=== PATIENT | male | born 1935 | race Caucasian/White ===

== ENCOUNTER 2017-12-06 23:55 | Inpatient (IN) | payer OTHER ==
[~2017-12-06] VITALS: Ht 180.3 cm; Wt 74.8 kg
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
--- NOTE | ~2017-12-06 | EC ---
PATIENT:BRANDEE PEREZ DATE OF SERVICE: 12/07/17 SEX: M MEDICAL RECORD: [id number] DATE OF : [birth year] LOCATION:[facility] [id number] AGE OF PATIENT: 81 ADMISSION DATE: 12/07/17 REFERRING PHYSICIAN: INTERPRETING PHYSICIAN: CASSIDY EDWARDS MD ECHOCARDIOGRAM REPORT ECHO CHARGES 4 ECHO COMPLETE Date: 12/08/17 CLINICAL DIAGNOSIS: CAD/MURMUR ECHOCARDIOGRAPHIC MEASUREMENTS (adult normal given) AC root (d.<3.7cm) 3.3 cm LV Septum d (<1.2 cm> 1.5 cm Valve Excursion 0.7 cm LV Septum (systole) 2.1 cm Left Atria (s.<4.0cm> 4.7 cm LVPW d(<1.2cm) 1.3 cm RV (d.<2.3cm) 2.4 cm LVPW (sytole) 2.0 cm LV diastole(<5.6CM) 3.9 cm MV E-F(>70mm/sec) cm LV systole 1.7 cm LVOT Diameter 2.2 cm MV exc.(>10mm) cm Est.ejection fraction (50-75%) % DOPPLER: LVIT cm/sec A 84.0 cm/sec E 92.0 cm/sec LA cm/sec RVSP 41.2 mmHg LVOT 138 cm/sec AOP1/2T m/s Asc. Ao 260 cm/sec RVOT 84.0 cm/sec RA cm/sec PA 106 cm/sec AV Gradient Peak 27.1 mmHg AV Mean 15.2 mmHg AV Area 2.1 cm MV Gradient Peak 6.0 mmHg MV Mean 2.8 mmHg MV Area cm COMMENTS: Foxing Closer: Alesia CABAOE Bow Maker: 1 Dr. Edwards TAPE# PACS Pericardial Effusion N DATE OF SERVICE: 12/08/2017 PROCEDURE: Echocardiogram. FINDINGS: 1. Left ventricular chamber size is within normal limits. Left ventricular systolic function is normal. Overall ejection fraction estimated at 60%. 2. Left atrium, right atrium, and right ventricle chamber sizes are mildly dilated. Left atrium measures 4.7 cm. 3. 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 The remaining valvular structures have normal structure and motion. 4. Doppler interrogation elsewise reveals mild mitral regurgitation, mild tricuspid regurgitation, no other valvular insufficiency or stenosis. 5. No evidence of pericardial effusion or left ventricular thrombus. TRANSINT:[id number] Voice Confirmation ID: [id number] DOCUMENT ID: [id number] CASSIDY EDWARDS MD at 1913 CC: [id number] DICTATION DATE: 12/08/17 1054 HR INTERNSHIP: 12/08/17 1111 DIS IN 12/15/17 [facility] [address] [place] [address]
--- NOTE | ~2017-12-06 | MORECARE ---
CASE MANAGEMENT DISCHARGE SUMMARY PATIENT: BRANDEE PEREZ UNIT: [id number] ADM DATE: 12/07/17 AGE: 81 : 35 SEX: M ROOM/BED: D.2220 AUTHOR: JET SANCHEZ PHYSICIAN: REFERRING PHYSICIAN: MAKEDA DELUCA MD DATE OF SERVICE: 12/11/17 Discharge Plan Patient Name: BRANDEE PEREZ Facility: [facility]:[place] : 1935 Planned Disposition: Nursing Home Facility Anticipated Discharge Date: Discharge Date: Expected LOS: Initial Reviewer: [email or web address] Initial Review Date: 12/07/2017 Generated: 12/11/17 4:07 pm Patient Name: BRANDEE PEREZ Page [id number] at 1507 All edits/amendments must be made on the electronic document DICTATION DATE: 12/11/171506 SEASONAL TAX PREPARER: ALBERT 12/11/17 1507 RPT#: [id number] DC DATE: STATUS: ADM IN [facility] [address] [place] [address] END OF REPORT
[2017-12-07] VITALS (7 sets, daily range): BP systolic 102–145; BP diastolic 55–71; BMI 23.0
[2017-12-07] MEDS ORDERED: FLOMAX0.4 MG PO (00:04)
[2017-12-07] MEDS ORDERED: BAYER CHEWABLE81 MG PO (00:04)
[2017-12-07] MEDS ORDERED: LIPITOR10 MG (00:04)
[2017-12-07 00:27] LABS: APPEARANCE CLOUDY (CLEAR); BILIRUBIN NEGATIVE (NEGATIVE); COLOR YELLOW (YELLOW); GLUCOSE NEGATIVE (NEGATIVE); KETONE NEGATIVE (NEGATIVE); NITRITE NEGATIVE (NEGATIVE); PROTEIN 2+ mg/dL (NEGATIVE); SPECIFIC GRAVITY 1.025 (1.005-1.020); UROBILINOGEN NORMAL (NORMAL)
[2017-12-07 00:29] LABS: BACTERIA MANY /hpf (NONE SEEN); EPITHELIAL CELLS 0-5 /hpf (0-5); RED CELLS - URINE 0-5 /hpf (0-5); WHITE CELLS - URINE 0-5 /hpf (0-5)
[2017-12-07 00:51] LABS: BASOPHILS 0.1 % (0-2); EOSINOPHILS 0 % (0-7); HEMATOCRIT 38.6 % (42.0-54.0); HEMOGLOBIN 12.9 g/dL (13.5-17.5); IMMATURE GRANULOCYTES 0.3 % (0-5); LYMPHOCYTES 4.6 % (15-50); MCH 29.9 pg (26.0-34.0); MCHC 33.4 g/dL (31.0-37.0); MCV 89.6 fL (80.0-100.0); MEAN PLATELET VOLUME 9.2 fL (7.4-10.4); MONOCYTES 13.9 % (2-11); NEUTROPHILS 81.1 % (40-80); RBC 4.31 10x6/uL (4.20-6.10); RDW 13.2 % (11.5-14.5); WBC 15.2 10x3/uL (4.8-10.8)
[2017-12-07 00:57] LABS: PLATELET COUNT 227 10x3/uL (130-400)
[2017-12-07 01:09] LABS: ALBUMIN 2.9 g/dL (3.4-5.0); ANION GAP 12.5 mmol/L (8-16); BILIRUBIN - TOTAL 0.46 mg/dL (0.2-1.3); CALCIUM 8.7 mg/dL (8.5-10.1); CARBON DIOXIDE 27.2 mmol/L (21.0-32.0); CREATININE - SERUM 1.5 mg/dL (0.6-1.3); POTASSIUM - SERUM 3.7 mmol/L (3.5-5.1)
[2017-12-07 01:13] LABS: TROPONIN-I 0.016 ng/mL (0.000-0.060)
[2017-12-07 11:05] LABS: BASOPHILS 0.1 % (0-2); EOSINOPHILS 0 % (0-7); HEMATOCRIT 37.2 % (42.0-54.0); HEMOGLOBIN 12.4 g/dL (13.5-17.5); IMMATURE GRANULOCYTES 0.3 % (0-5); LYMPHOCYTES 3.9 % (15-50); MCH 30.2 pg (26.0-34.0); MCHC 33.3 g/dL (31.0-37.0); MCV 90.5 fL (80.0-100.0); MONOCYTES 12.1 % (2-11); NEUTROPHILS 83.6 % (40-80); PLATELET COUNT 189 10x3/uL (130-400); RBC 4.11 10x6/uL (4.20-6.10); RDW 13.4 % (11.5-14.5); WBC 15.7 10x3/uL (4.8-10.8)
[2017-12-07 14:12] LABS: CKMB 1.7 U/L (0.0-3.6); CREATINE KINASE 517 UL (21-232)
[2017-12-07 14:21] LABS: TROPONIN-I 0.391 ng/mL (0.000-0.060)
[2017-12-07 18:45] LABS: CKMB 1.6 U/L (0.0-3.6); CREATINE KINASE 459 UL (21-232)
[2017-12-07 18:46] LABS: TROPONIN-I 0.466 ng/mL (0.000-0.060)
[2017-12-07 23:48] LABS: CKMB 0.7 U/L (0.0-3.6); CREATINE KINASE 385 UL (21-232)
[2017-12-07 23:49] LABS: TROPONIN-I 0.439 ng/mL (0.000-0.060)
[2017-12-08 05:01] VITALS: BP 165/71
[2017-12-08 06:14] LABS: BASOPHILS 0.2 % (0-2); EOSINOPHILS 0 % (0-7); HEMATOCRIT 35.4 % (42.0-54.0); HEMOGLOBIN 11.6 g/dL (13.5-17.5); IMMATURE GRANULOCYTES 0.2 % (0-5); LYMPHOCYTES 6.3 % (15-50); MCH 29.7 pg (26.0-34.0); MCHC 32.8 g/dL (31.0-37.0); MCV 90.5 fL (80.0-100.0); MEAN PLATELET VOLUME 9.7 fL (7.4-10.4); MONOCYTES 13.3 % (2-11); PLATELET COUNT 165 10x3/uL (130-400); RBC 3.91 10x6/uL (4.20-6.10); RDW 13.7 % (11.5-14.5)
[2017-12-08 06:24] LABS: WBC 10.5 10x3/uL (4.8-10.8)
[2017-12-08 06:33] LABS: ALBUMIN 2.2 g/dL (3.4-5.0); BILIRUBIN - TOTAL 0.31 mg/dL (0.2-1.3); CALCIUM 7.8 mg/dL (8.5-10.1); CREATININE - SERUM 1.3 mg/dL (0.6-1.3); PROTEIN - SERUM 5.9 g/dL (6.4-8.2)
[2017-12-08 07:55] VITALS: BP 132/61
[2017-12-08 09:04] VITALS: Ht 180.3 cm; Wt 74.8 kg
[2017-12-08 11:26] VITALS: BP 140/64
[2017-12-08 15:37] VITALS: BP 128/64
[2017-12-08 21:00] VITALS: BP 146/69
[2017-12-09 04:53] LABS: BASOPHILS 0.1 % (0-2); EOSINOPHILS 0.1 % (0-7); HEMATOCRIT 32.8 % (42.0-54.0); HEMOGLOBIN 11.1 g/dL (13.5-17.5); IMMATURE GRANULOCYTES 0.2 % (0-5); LYMPHOCYTES 8.1 % (15-50); MCH 29.5 pg (26.0-34.0); MCHC 33.8 g/dL (31.0-37.0); MCV 87.2 fL (80.0-100.0); MEAN PLATELET VOLUME 9.7 fL (7.4-10.4); MONOCYTES 13.1 % (2-11); NEUTROPHILS 78.4 % (40-80); PLATELET COUNT 139 10x3/uL (130-400); RBC 3.76 10x6/uL (4.20-6.10); RDW 13.7 % (11.5-14.5); WBC 8.9 10x3/uL (4.8-10.8)
[2017-12-09 05:10] VITALS: BP 154/81
[2017-12-09 05:17] LABS: ALBUMIN 1.9 g/dL (3.4-5.0); ANION GAP 15.2 mmol/L (8-16); BILIRUBIN - TOTAL 0.25 mg/dL (0.2-1.3); CALCIUM 7.7 mg/dL (8.5-10.1); CARBON DIOXIDE 18.5 mmol/L (21.0-32.0); CREATININE - SERUM 1.4 mg/dL (0.6-1.3); POTASSIUM - SERUM 3.7 mmol/L (3.5-5.1); PROTEIN - SERUM 5.6 g/dL (6.4-8.2)
[2017-12-09 09:40] VITALS: BP 147/81
[2017-12-09 16:36] VITALS: BP 144/76
[2017-12-09 20:05] VITALS: BP 148/74
[2017-12-10 05:20] LABS: BASOPHILS 0 % (0-2); EOSINOPHILS 0.3 % (0-7); HEMATOCRIT 33.1 % (42.0-54.0); HEMOGLOBIN 11.4 g/dL (13.5-17.5); IMMATURE GRANULOCYTES 0.4 % (0-5); LYMPHOCYTES 8.7 % (15-50); MCH 29.8 pg (26.0-34.0); MCHC 34.4 g/dL (31.0-37.0); MCV 86.4 fL (80.0-100.0); MEAN PLATELET VOLUME 10.4 fL (7.4-10.4); MONOCYTES 13.2 % (2-11); NEUTROPHILS 77.4 % (40-80); PLATELET COUNT 133 10x3/uL (130-400); RBC 3.83 10x6/uL (4.20-6.10); WBC 7.7 10x3/uL (4.8-10.8)
[2017-12-10 05:25] VITALS: BP 154/85
[2017-12-10 05:44] LABS: ALBUMIN 1.8 g/dL (3.4-5.0); ANION GAP 17.9 mmol/L (8-16); BILIRUBIN - TOTAL 0.27 mg/dL (0.2-1.3); CALCIUM 7.6 mg/dL (8.5-10.1); CARBON DIOXIDE 18.7 mmol/L (21.0-32.0); CREATININE - SERUM 1.2 mg/dL (0.6-1.3); POTASSIUM - SERUM 3.6 mmol/L (3.5-5.1)
[2017-12-10 08:24] VITALS: BP 142/88
[2017-12-10 14:21] VITALS: BP 137/73
[2017-12-10 19:56] VITALS: BP 151/88
[2017-12-11] VITALS: BP 149/77
[2017-12-11 04:00] VITALS: BP 155/89
[2017-12-11 04:42] LABS: BASOPHILS 0.1 % (0-2); EOSINOPHILS 1.2 % (0-7); IMMATURE GRANULOCYTES 0.4 % (0-5); LYMPHOCYTES 9.6 % (15-50); MCH 30.1 pg (26.0-34.0); MCHC 34.8 g/dL (31.0-37.0); MCV 86.6 fL (80.0-100.0); MEAN PLATELET VOLUME 10.4 fL (7.4-10.4); MONOCYTES 9.5 % (2-11); NEUTROPHILS 79.2 % (40-80); PLATELET COUNT 149 10x3/uL (130-400); RDW 14.1 % (11.5-14.5); WBC 9.6 10x3/uL (4.8-10.8)
[2017-12-11 04:46] LABS: HEMOGLOBIN 13.9 g/dL (13.5-17.5); RBC 4.62 10x6/uL (4.20-6.10)
[2017-12-11 05:08] LABS: ANION GAP 17.4 mmol/L (8-16); BILIRUBIN - TOTAL 0.33 mg/dL (0.2-1.3); CALCIUM 8.3 mg/dL (8.5-10.1); CARBON DIOXIDE 21.1 mmol/L (21.0-32.0); CREATININE - SERUM 1.2 mg/dL (0.6-1.3); POTASSIUM - SERUM 3.5 mmol/L (3.5-5.1)
[2017-12-11 07:43] VITALS: BP 161/90
[2017-12-11 16:32] VITALS: BP 119/80
[2017-12-11 21:17] VITALS: BP 103/69
[2017-12-12 04:50] LABS: BASOPHILS 0.1 % (0-2); EOSINOPHILS 2.3 % (0-7); HEMOGLOBIN 12.4 g/dL (13.5-17.5); IMMATURE GRANULOCYTES 0.4 % (0-5); MCH 29.6 pg (26.0-34.0); MCHC 34.4 g/dL (31.0-37.0); MCV 85.9 fL (80.0-100.0); MEAN PLATELET VOLUME 10.3 fL (7.4-10.4); MONOCYTES 8.2 % (2-11); PLATELET COUNT 159 10x3/uL (130-400); RBC 4.19 10x6/uL (4.20-6.10); RDW 14.3 % (11.5-14.5)
[2017-12-12 05:04] VITALS: BP 169/82
[2017-12-12 05:10] LABS: ALBUMIN 1.7 g/dL (3.4-5.0); ANION GAP 13.6 mmol/L (8-16); BILIRUBIN - TOTAL 0.37 mg/dL (0.2-1.3); CALCIUM 8.4 mg/dL (8.5-10.1); CARBON DIOXIDE 24.8 mmol/L (21.0-32.0); CREATININE - SERUM 1.2 mg/dL (0.6-1.3); POTASSIUM - SERUM 3.4 mmol/L (3.5-5.1); PROTEIN - SERUM 5.8 g/dL (6.4-8.2)
[2017-12-12 08:18] VITALS: BP 122/77
[2017-12-12 12:18] VITALS: BP 126/69
[2017-12-12 17:49] VITALS: BP 125/77
[2017-12-12 21:21] VITALS: BP 124/78
[2017-12-13 04:49] VITALS: BP 162/75
[2017-12-13 09:01] VITALS: BP 159/73
[2017-12-13 12:05] VITALS: BP 147/69
[2017-12-13 19:10] LABS: AEROBE ID Final report (()); RESULT 1 Aerococcus urinae (())
[2017-12-13 20:49] VITALS: BP 123/76
[2017-12-14 04:35] VITALS: BP 181/90
[2017-12-14 05:57] LABS: BASOPHILS 0 % (0-2); EOSINOPHILS 0 % (0-7); HEMATOCRIT 33.7 % (42.0-54.0); HEMOGLOBIN 11.3 g/dL (13.5-17.5); IMMATURE GRANULOCYTES 0.5 % (0-5); LYMPHOCYTES 12.1 % (15-50); MCH 29.2 pg (26.0-34.0); MCHC 33.5 g/dL (31.0-37.0); MCV 87.1 fL (80.0-100.0); MEAN PLATELET VOLUME 10.3 fL (7.4-10.4); MONOCYTES 5.6 % (2-11); NEUTROPHILS 81.8 % (40-80); RBC 3.87 10x6/uL (4.20-6.10); RDW 14.8 % (11.5-14.5); WBC 6.2 10x3/uL (4.8-10.8)
[2017-12-14 05:58] LABS: PLATELET COUNT 197 10x3/uL (130-400)
[2017-12-14 06:27] LABS: CALC OSMOLALITY 290 mosm/kg (275-300); CALCIUM 8.1 mg/dL (8.5-10.1); CARBON DIOXIDE 24.2 mmol/L (21.0-32.0); CHLORIDE - SERUM 108 mmol/L (98-107); GLUCOSE 152 mg/dL (74-106); POTASSIUM - SERUM 3.8 mmol/L (3.5-5.1); SODIUM 142 mmol/L (136-145); UREA NITROGEN 27 mg/dL (7-18); eGFR NON AFRICAN AMERICAN 76 mL/min (90-120)
[2017-12-14 09:45] VITALS: BP 166/84
[2017-12-14 13:20] VITALS: BP 156/84
[2017-12-14 17:07] VITALS: BP 138/48
[2017-12-14 21:05] VITALS: BP 130/74
[2017-12-15 04:35] VITALS: BP 160/87
[2017-12-15 07:39] LABS: HEMATOCRIT 32.1 % (42.0-54.0); HEMOGLOBIN 10.8 g/dL (13.5-17.5); LYMPHOCYTES 11.8 % (15-50); MCH 29.3 pg (26.0-34.0); MCHC 33.6 g/dL (31.0-37.0); MEAN PLATELET VOLUME 9.1 fL (7.4-10.4); NEUTROPHILS 76.4 % (40-80); PLATELET COUNT 198 10x3/uL (130-400); RBC 3.69 10x6/uL (4.20-6.10)
[2017-12-15 07:51] LABS: WBC 9.3 10x3/uL (4.8-10.8)
[2017-12-15 08:01] LABS: ALBUMIN 1.7 g/dL (3.4-5.0); ALKALINE PHOSPHATASE 57 U/L (46-116); ALT (SGPT) 140 U/L (10-68); BILIRUBIN - TOTAL 0.29 mg/dL (0.2-1.3); CALC OSMOLALITY 291 mosm/kg (275-300); CALCIUM 7.7 mg/dL (8.5-10.1); CARBON DIOXIDE 23.4 mmol/L (21.0-32.0); CHLORIDE - SERUM 111 mmol/L (98-107); GLUCOSE 108 mg/dL (74-106); POTASSIUM - SERUM 3.3 mmol/L (3.5-5.1); PROTEIN - SERUM 5.4 g/dL (6.4-8.2); SODIUM 143 mmol/L (136-145); UREA NITROGEN 29 mg/dL (7-18); eGFR NON AFRICAN AMERICAN 76 mL/min (90-120)
[2017-12-15 08:54] VITALS: BP 153/74
[2017-12-15 12:37] VITALS: BP 137/66
[2017-12-15] MEDS ORDERED: LEVAQUIN750 MG PO (12:56)
== END 2017-12-15 13:33 | DRG 193 ==
LOC: D.ER 23:55 → D.MS 12-07 01:34
PROVIDERS: Emergency Medicine; Family Medicine; Internal Medicine Nephrology
PROC: 3E0U33Z Introduction of Anti-inflammatory into Joints, Percutaneous Approach (ICD-10-PCS; principal; 2017-12-13)
DX: J18.9 Pneumonia, unspecified organism (principal); G93.41 Metabolic encephalopathy; N12 Tubulo-interstitial nephritis, not specified as acute or chronic; J90 Pleural effusion, not elsewhere classified; R53.1 Weakness; R29.6 Repeated falls; E78.5 Hyperlipidemia, unspecified; R73.9 Hyperglycemia, unspecified; N28.9 Disorder of kidney and ureter, unspecified; I25.10 Atherosclerotic heart disease of native coronary artery without angina pectoris; I08.1 Rheumatic disorders of both mitral and tricuspid valves; M17.11 Unilateral primary osteoarthritis, right knee

== ENCOUNTER 2019-01-03 20:04 | Emergency (ER) | payer OTHER ==
[~2019-01-03] VITALS: Ht 180.3 cm; Wt 77.7 kg
[~2019-01-03 20:04] MED LIST: BAYER CHEWABLE81 MG PO; FLOMAX0.4 MG PO; LEVAQUIN750 MG PO; LIPITOR10 MG
[2019-01-03 20:10] VITALS: Ht 180.3 cm; Wt 77.7 kg
[2019-01-03] MEDS ORDERED: [UNRECOGNIZED DRUG - REMARK] (20:17)
[2019-01-03 20:37] LABS: BASOPHILS 0.2 % (0-2); EOSINOPHILS 1.1 % (0-7); HEMATOCRIT 35.8 % (42.0-54.0); HEMOGLOBIN 11.5 g/dL (13.5-17.5); IMMATURE GRANULOCYTES 0.2 % (0-5); LYMPHOCYTES 31.9 % (15-50); MCH 29.2 pg (26.0-34.0); MCHC 32.1 g/dL (31.0-37.0); MCV 90.9 fL (80.0-100.0); MEAN PLATELET VOLUME 9.3 fL (7.4-10.4); MONOCYTES 10.6 % (2-11); PLATELET COUNT 174 10x3/uL (130-400); RBC 3.94 10x6/uL (4.20-6.10); WBC 4.6 10x3/uL (4.8-10.8)
[2019-01-03 20:45] LABS: APTT 26.3 SECONDS (22.8-39.4); INR 1.1 (0.85-1.17); PROTIME 13.7 SECONDS (11.6-15.0)
[2019-01-03 20:46] LABS: CALC OSMOLALITY 298 mosm/kg (275-300); CALCIUM 8.5 mg/dL (8.5-10.1); CARBON DIOXIDE 27.1 mmol/L (21.0-32.0); CHLORIDE - SERUM 111 mmol/L (98-107); CREATININE - SERUM 1.5 mg/dL (0.6-1.3); GLUCOSE 130 mg/dL (74-106); POTASSIUM - SERUM 3.6 mmol/L (3.5-5.1); SODIUM 146 mmol/L (136-145); UREA NITROGEN 28 mg/dL (7-18); eGFR NON AFRICAN AMERICAN 47 mL/min (90-120)
[2019-01-03 21:03] LABS: ALBUMIN 3.3 g/dL (3.4-5.0); ALKALINE PHOSPHATASE 119 U/L (46-116); ALT (SGPT) 25 U/L (10-68); BILIRUBIN - TOTAL 0.24 mg/dL (0.2-1.3); CKMB 5.5 U/L (0.0-3.6); CREATINE KINASE 167 UL (21-232); MAGNESIUM - SERUM 2.1 mg/dL (1.8-2.4); PROTEIN - SERUM 6.6 g/dL (6.4-8.2)
[2019-01-03 21:05] LABS: TROPONIN-I < 0.017 ng/mL (0.000-0.060)
[2019-01-03 22:16] LABS: APPEARANCE CLEAR (CLEAR); BILIRUBIN NEGATIVE (NEGATIVE); COLOR STRAW (YELLOW); GLUCOSE NEGATIVE (NEGATIVE); KETONE NEGATIVE (NEGATIVE); NITRITE NEGATIVE (NEGATIVE); PROTEIN NEGATIVE (NEGATIVE); UROBILINOGEN NORMAL (NORMAL)
[2019-01-04 01:00] VITALS: BP 164/89
== END 2019-01-04 01:01 | disposition home or self-care (01) ==
LOC: D.ER 20:04
PROVIDERS: Family Medicine
DX: R55 Syncope and collapse (principal); R53.1 Weakness

== ENCOUNTER 2019-06-08 17:33 | Emergency (ER) | payer OTHER ==
[~2019-06-08] VITALS: Ht 180.3 cm; Wt 88.6 kg
[~2019-06-08 17:33] MED LIST changes: +[UNRECOGNIZED DRUG - REMARK]
[2019-06-08 17:37] VITALS: Ht 180.3 cm; Wt 88.6 kg
[2019-06-08 18:18] LABS: BASOPHILS 0.1 % (0-2); EOSINOPHILS 0 % (0-7); HEMATOCRIT 38.6 % (42.0-54.0); HEMOGLOBIN 12.5 g/dL (13.5-17.5); IMMATURE GRANULOCYTES 0.2 % (0-5); LYMPHOCYTES 7.8 % (15-50); MCH 29.6 pg (26.0-34.0); MCHC 32.4 g/dL (31.0-37.0); MCV 91.3 fL (80.0-100.0); MEAN PLATELET VOLUME 9.1 fL (7.4-10.4); MONOCYTES 17.4 % (2-11); NEUTROPHILS 74.5 % (40-80); PLATELET COUNT 156 10x3/uL (130-400); RBC 4.23 10x6/uL (4.20-6.10); RDW 13.9 % (11.5-14.5); WBC 9.7 10x3/uL (4.8-10.8)
[2019-06-08 18:27] LABS: ANION GAP 16.3 mmol/L (8-16); CALCIUM 8.7 mg/dL (8.5-10.1); CARBON DIOXIDE 23.2 mmol/L (21.0-32.0); CREATININE - SERUM 1.5 mg/dL (0.6-1.3); POTASSIUM - SERUM 3.5 mmol/L (3.5-5.1)
[2019-06-08 18:33] LABS: ALBUMIN 3.4 g/dL (3.4-5.0); BILIRUBIN - TOTAL 0.73 mg/dL (0.2-1.3); PROTEIN - SERUM 7.2 g/dL (6.4-8.2)
[2019-06-08 19:07] LABS: BILIRUBIN NEGATIVE (NEGATIVE); GLUCOSE NEGATIVE (NEGATIVE); KETONE SMALL mg/dL (NEGATIVE); NITRITE NEGATIVE (NEGATIVE); SPECIFIC GRAVITY 1.025 (1.005-1.020); UROBILINOGEN NORMAL (NORMAL)
[2019-06-08 19:08] LABS: RED CELLS - URINE 0-5 /hpf (0-5); WHITE CELLS - URINE 25-50 /hpf (NEGATIVE)
[2019-06-08 19:08] LABS: UDS - AMPHET NEGATIVE QUAL (NEGATIVE); UDS - BARB NEGATIVE QUAL (NEGATIVE); UDS - BENZO NEGATIVE QUAL (NEGATIVE); UDS - COCAINE NEGATIVE QUAL (NEGATIVE); UDS - OPIATE NEGATIVE QUAL (NEGATIVE); UDS - PCP NEGATIVE QUAL (NEGATIVE); UDS - THC NEGATIVE QUAL (NEGATIVE)
[2019-06-08 19:09] LABS: BACTERIA MODERATE /hpf (NEGATIVE); EPITHELIAL CELLS 0-5 /hpf (0-5)
[2019-06-08] MEDS ORDERED: OMNICEF300 MG PO (19:23)
[2019-06-08 19:43] VITALS: BP 125/78
== END 2019-06-08 19:44 | disposition home or self-care (01) ==
LOC: D.ER 17:33
PROVIDERS: Family Medicine
DX: N39.0 Urinary tract infection, site not specified (principal); G89.29 Other chronic pain; M25.561 Pain in right knee; R55 Syncope and collapse; R56.9 Unspecified convulsions

== ENCOUNTER 2020-05-14 14:30 | Emergency (ER) | payer OTHER ==
[~2020-05-14] VITALS: Ht 180.3 cm; Wt 77.7 kg
[~2020-05-14 14:30] MED LIST changes: +OMNICEF300 MG PO
[2020-05-14 14:35] VITALS: BP 138/72; Ht 180.3 cm; Wt 77.7 kg
[2020-05-14] MEDS ORDERED: EZFE 200200 MG PO (14:38)
[2020-05-14 15:39] LABS: HEMATOCRIT 38.6 % (42.0-54.0); HEMOGLOBIN 12.8 g/dL (13.5-17.5); LYMPHOCYTE ABS# 0.92 10x3/uL (1.32-3.57); MCH 29.6 pg (26.0-34.0); MCHC 33.2 g/dL (31.0-37.0); MCV 89.4 fL (80.0-100.0); MEAN PLATELET VOLUME 9.6 fL (7.4-10.4); NEUTROPHIL ABS# 3.71 10x3/uL (1.78-5.38); PLATELET COUNT 170 10x3/uL (130-400); RBC 4.32 10x6/uL (4.20-6.10); RDW 13.5 % (11.5-14.5); WBC 6.1 10x3/uL (4.8-10.8)
[2020-05-14 15:43] LABS: ANION GAP 8.9 mmol/L (8-16); CALCIUM 8.6 mg/dL (8.5-10.1); CARBON DIOXIDE 27.9 mmol/L (21.0-32.0); CREATININE - SERUM 1.3 mg/dL (0.6-1.3); POTASSIUM - SERUM 3.8 mmol/L (3.5-5.1)
[2020-05-14 15:49] LABS: ALBUMIN 3.1 g/dL (3.4-5.0); BILIRUBIN - TOTAL 0.56 mg/dL (0.2-1.3); PROTEIN - SERUM 6.9 g/dL (6.4-8.2)
[2020-05-14 15:50] LABS: NITRITE NEGATIVE (NEGATIVE)
[2020-05-14 15:51] LABS: BACTERIA MANY HPF (NONE SEEN); BILIRUBIN NEGATIVE (NEGATIVE); KETONE NEGATIVE (NEGATIVE); UROBILINOGEN NORMAL mg/dL (< 2)
[2020-05-14] MEDS ORDERED: CEPHALEXIN500 M1 PO (16:22)
[2020-05-14 18:00] LABS: LYMPHOCYTES 20 % (15-50); MONOCYTES 3 % (2-11); NEUTROPHILS 77 % (40-80); PLATELET ESTIMATE NORMAL
== END 2020-05-14 16:31 | disposition home or self-care (01) ==
LOC: D.ER 14:30
PROVIDERS: Emergency Medicine
DX: N39.0 Urinary tract infection, site not specified (principal); E86.0 Dehydration; R53.1 Weakness